=== PATIENT | male | born 1970 | race Caucasian/White ===

== ENCOUNTER → 2024-05-05 | Outpatient (REF) | LOC: M PLAIMG 09:04 | PROVIDERS: ATTEND Internal Medicine | DX: R52 Pain, unspecified (principal) ==

== ENCOUNTER → 2024-11-08 | Outpatient (REF) | payer MEDICAID, OTHER | LOC: M SFHCLERA 09:13 | PROVIDERS: ATTEND Internal Medicine | DX: I10 Essential (primary) hypertension (principal); Z71.41 Alcohol abuse counseling and surveillance of alcoholic ==